=== PATIENT | male | born 1970 | race Caucasian/White ===

== ENCOUNTER 2017-08-19 17:33 | Emergency (ER) | payer MEDICAID ==
[~2017-08-19] VITALS: Ht 167.6 cm; Wt 85.0 kg
[2017-08-19 17:42] VITALS: BP 156/85; PULSE 80; RESP 16; TEMP 98.3; O2SAT 97
[2017-08-19] MEDS ORDERED: BACT800T5 PO (20:07)
--- NOTE | 2017-08-19 20:14 | PD ---
HPI Chief Complaint: Medical Clearance Time Seen by Provider: 19:55 Travel History International Travel<30 days: No Contact w/Intl Traveler<30days: No Traveled to known affect area: No History of Present Illness HPI 47-year-old white male presents emergency department with complains of pain in the right groin over the last 24 hours. Patient states that he has had a lesion on his right lower flank for quite some time. In the last 2-3 weeks it has become increasingly swollen and enlarged and bleeds readily. He was seen at another emergency department and they could not determine the etiology of the lesion. They did explain to him that it was most likely benign. Patient denies any fever chills. He states that he had some slight nausea today but no vomiting. No abdominal pain. No dysuria, frequency or urgency. He states that the pain in his right groin causes him have difficulty moving his right leg. He states that he has some tingling around the right groin. Symptoms are moderate. No exacerbating activity. No alleviating activity. PFSH Past Medical History Narrative Medical Borderline diabetes, borderline hypertension Tetanus Vaccination: < 5 Years Past Surgical History Narrative Surgical Hernia repair Social History Alcohol Use: No Tobacco Use: Yes (Hips) Allergies-Medications (Allergen,Severity, Reaction): Coded Allergies: No Known Allergies (Unverified , 08/19/17) Reported Meds & Prescriptions Reported Meds & Active Scripts Active Bactrim DS (Sulfamethoxazole-Trimethoprim) 800-160 Mg Tab 1 Tab PO BID Review of Systems General / Constitutional: No: Fever Eyes: No: Visual changes HENT: No: Headaches Cardiovascular: No: Chest Pain or Discomfort Respiratory: No: Shortness of Breath Gastrointestinal: Positive: Nausea, No: Abdominal Pain Genitourinary: No: Dysuria Musculoskeletal: Positive: Pain (Pain in the right groin), No: Myalgias, Arthralgias, Limited ROM, Weakness Skin: No Rash Neurologic: No: Weakness Psychiatric: No: Depression Endocrine: No: Polydipsia Hematologic/Lymphatic: No: Easy Bruising Physical Exam Narrative GENERAL: Well-developed, well-nourished in no acute distress. Nontoxic appearing. Patient's is in the examination room. HEAD: Normocephalic, atraumatic. EYES: Pupils equal round and reactive. Extraocular motions intact. No scleral icterus. No injection or drainage. ENT: TMs clear without erythema. The external auditory canals clear. Nose: clear . Posterior pharynx is pink and moist. No tonsillar edema or exudate. Uvula midline. Airway patent. NECK: Trachea midline.Supple, nontender, moves head freely. No central bony tenderness or spasm. CARDIOVASCULAR: Regular rate and rhythm without murmurs, gallops, or rubs. RESPIRATORY: Clear to auscultation. Breath sounds equal bilaterally. No wheezes , rales, or rhonchi. GASTROINTESTINAL: Abdomen soft, non-tender, nondistended. No hepato-splenomegaly , or palpable masses. No guarding. Patient has enlarged right inguinal chain of lymphadenopathy. : Circumcised male. Testicles down. No testicular mass. No hernia. No testicular tenderness. No rashes or lesions. EXTREMITIES: No clubbing, cyanosis, or edema. No joint tenderness, effusion, or edema noted. BACK: Nontender without deformity or crepitance. No flank tenderness. Patient has a 3 x 3 cm irregularly-shaped pedunculated ecchymotic friable lesion to the right lower flank at the level of the superior iliac crest. Data Data Last Documented VS Vital Signs Date Time Temp Pulse Resp B/P (MAP) Pulse Ox O2 Delivery O2 Flow Rate FiO2 08/19/17 17:42 98.3 80 16 156/85 (108) 97 Orders Orders Ed Discharge Order (08/19/17 20:05) Sulfamet-Trimeth Ds 800-160 Mg (Bactrim (08/19/17 20:15) MDM Medical Decision Making Medical Screen Exam Complete: Yes Emergency Medical Condition: Yes Medical Record Reviewed: Yes Differential Diagnosis MDM: High Differential diagnoses: Abscess, folliculitis, cellulitis, lymphangitis, abrasion, contact dermatitis Narrative Course Patient appears to have a pyogenic granuloma to the right lower flank.I suspect his inguinal adenopathy is secondary to the lesion on his back. Does not look acutely infected. He does have tender inguinal adenopathy. Patient will be empirically treated with Bactrim DS. Patient is advised to follow-up with the [facility] for referral to a surgeon for definitive excision and biopsy. Diagnosis Primary Impression: Inguinal adenopathy Additional Impression: Pyogenic granuloma Referrals: [facility] 3 days Patient Instructions: General Instructions Additional Instructions: Rest. Keep the area clean and dry. Try to keep it covered. Try not to irritate the lesion. Bactrim DS. 3 Advil every 6 hours as needed for pain. Follow-up with the [facility] in the next few days for recheck. Return to the ER if any problems. Med/Other Pt SpecificInfo: Prescription(s) given Scripts Sulfamethoxazole-Trimethoprim (Bactrim DS) 800-160 Mg Tab 1 TAB PO BID for Infection, #20 TAB 0 Refills Prov: Madalyn Diamond MD 08/19/17 Disposition: 01 DISCHARGE HOME Condition: Stable Jaylon Her Aug 19, 2017 20:14
[2017-08-19] MEDS ORDERED: SULFAMETHOXAZOLE-TRIMETHOPRIM DS 800-160 MG TAB PO ONE (20:15)
== END 2017-08-19 21:25 | disposition home or self-care (01) ==
LOC: NEPD 17:33
DX: R59.0 Localized enlarged lymph nodes (principal); L98.0 Pyogenic granuloma; R11.0 Nausea; R73.03 Prediabetes; R03.0 Elevated blood-pressure reading, without diagnosis of hypertension; F17.200 Nicotine dependence, unspecified, uncomplicated
CPT/HCPCS: 99283